=== PATIENT | female | born 1990 | race Caucasian/White ===

== ENCOUNTER 2018-01-21 09:52 | Inpatient (IN) | payer BC ==
[~2018-01-21] VITALS: Ht 160 cm; Wt 103.2 kg
[2018-01-21 00:40] VITALS: BP 109/73
[2018-01-21] MEDS ORDERED: OXYTOCIN 30U/ 0.9% NaCL 500ML 500 ML ONE (10:04)
[2018-01-21] MEDS ORDERED: NEWBORN KIT ONE (10:04)
[2018-01-21] MEDS ORDERED: LACTATED RINGERS 1,000 ML IVBOLUS ONE (10:30)
[2018-01-21] MEDS ORDERED: SODIUM CITRATE/CITRIC ACID 30 ML UDC PO ONE (10:30)
[2018-01-21] MEDS ORDERED: METOCLOPRAMIDE 5 MG/ML, 2ML IV ONE (10:30)
[2018-01-21] MEDS ORDERED: ONDANSETRON 2MG/ML, 2ML IVPush ONE (10:30)
[2018-01-21 10:47] VITALS: BP 133/82
[2018-01-21] MEDS ORDERED: SODIUM CITRATE/CITRIC ACID 30 ML UDC ONE (11:10)
[2018-01-21] MEDS ORDERED: METOCLOPRAMIDE 5 MG/ML, 2ML ONE (11:10)
[2018-01-21 11:13] LABS: BASOPHILS # (AUTO) 0.03 x10^3/uL (0-0.1); BASOPHILS % (AUTO) 0 % (0-1); EOSINOPHILS # (AUTO) 0.06 x10^3/uL (0-0.4); EOSINOPHILS % (AUTO) 1 % (1-7); LYMPHOCYTES # (AUTO) 1.67 x10^3/uL (1-3.4); LYMPHOCYTES % (AUTO) 18 % (22-44); MD NO; MEAN CORPUSCULAR HEMOGLOBIN 30.1 pg (27.0-34.8); MEAN CORPUSCULAR VOLUME 88.4 fL (80-100); MEAN PLATELET VOLUME 8.7 fL (7.4-10.4); MONOCYTES # (AUTO) 0.46 x10^3/uL (0.2-0.8); MONOCYTES % (AUTO) 5 % (2-9); NEUTROPHILS # (AUTO) 6.98 x10^3/uL (1.8-6.8); NEUTROPHILS % (AUTO) 76 % (42-75); PLATELET COUNT 217 x10^3/uL (130-400); RED BLOOD COUNT 4.13 x10^6/uL (3.82-5.3); RED CELL DISTRIBUTION WIDTH 13.4 % (9.6-15.2)
[2018-01-21] MEDS: LACTATED RINGERS 1,000 ML IV SCH ×4 (11:18→22:36)
[2018-01-21] MEDS ORDERED: ONDANSETRON 2MG/ML, 2ML ONE (11:52)
[2018-01-21] MEDS ORDERED: CEFAZOLIN 1,000 MG ONE (11:52)
[2018-01-21] MEDS ORDERED: EPHEDRINE 50 MG/ML, 1ML ONE (11:52)
[2018-01-21] MEDS ORDERED: PHENYLEPHRINE 10 MG/ML ONE (11:52)
[2018-01-21] MEDS ORDERED: OXYTOCIN 10 UNITS/ML, 1ML ONE (11:52)
[2018-01-21] MEDS ORDERED: morphine SULFATE/PF 0.5 MG/ML, 10ML ONE (11:53)
[2018-01-21] MEDS ORDERED: EPINEPHRINE 1 MG/ML, 1ML ONE (11:57)
[2018-01-21] MEDS ORDERED: OXYTOCIN 30U/ 0.9% NaCL 500ML 500 ML IV SCH (12:36)
[2018-01-21] MEDS ORDERED: LACTATED RINGERS 1,000 ML IV SCH ×2 (12:36→13:00)
[2018-01-21] MEDS ORDERED: ONDANSETRON 2MG/ML, 2ML IV PRN (13:00)
[2018-01-21] MEDS ORDERED: OXYcodone/APAP 5/325MG TABLET PO PRN (13:00)
[2018-01-21] MEDS ORDERED: MEASLES,MUMPS&RUBELLA VACC/PF 0.5 ML SQ-VACC PRN (13:00)
[2018-01-21] MEDS ORDERED: MISOPROSTOL 200 MCG TABLET PR PRN (13:00)
[2018-01-21] MEDS ORDERED: morphine SULFATE 10 MG/ML, 1ML IVPush PRN (13:00)
[2018-01-21] MEDS ORDERED: OXYcodone IR 5MG TABLET PO PRN (13:00)
[2018-01-21] MEDS ORDERED: SIMETHICONE 80 MG CHEW TAB PO PRN (13:00)
[2018-01-21] MEDS ORDERED: CALCIUM CARBONATE 500 MG TAB.CHEW PO PRN (13:00)
[2018-01-21] MEDS ORDERED: DIPH,PERTUSS(ACELL),TET VAC/PF NC IM-VACC PRN (13:00)
[2018-01-21] MEDS: OXYTOCIN 30U/ 0.9% NaCL 500ML 500 ML IV SCH ×2 (14:37→20:23)
[2018-01-21 14:50] VITALS: BP 125/82
[2018-01-21 17:00] VITALS: BP 143/86
[2018-01-21] MEDS: KETOROLAC 30 MG/1 ML IV SCH (18:05)
[2018-01-21 19:30] VITALS: BP 112/76
[2018-01-21 21:04] LABS: BASOPHILS # (AUTO) 0.04 x10^3/uL (0-0.1); BASOPHILS % (AUTO) 0 % (0-1); EOSINOPHILS # (AUTO) 0.04 x10^3/uL (0-0.4); EOSINOPHILS % (AUTO) 0 % (1-7); LYMPHOCYTES # (AUTO) 1.78 x10^3/uL (1-3.4); LYMPHOCYTES % (AUTO) 14 % (22-44); MD NO; MEAN CORPUSCULAR HEMOGLOBIN 29.5 pg (27.0-34.8); MEAN CORPUSCULAR HGB CONC 33.6 g/dL (32.4-35.8); MEAN CORPUSCULAR VOLUME 87.7 fL (80-100); MEAN PLATELET VOLUME 7.8 fL (7.4-10.4); MONOCYTES # (AUTO) 0.76 x10^3/uL (0.2-0.8); MONOCYTES % (AUTO) 6 % (2-9); NEUTROPHILS # (AUTO) 9.99 x10^3/uL (1.8-6.8); NEUTROPHILS % (AUTO) 79 % (42-75); PLATELET COUNT 206 x10^3/uL (130-400); RED BLOOD COUNT 3.56 x10^6/uL (3.82-5.3); RED CELL DISTRIBUTION WIDTH 13.5 % (9.6-15.2)
[2018-01-22 00:40] VITALS: BP 109/73
[2018-01-22] MEDS: KETOROLAC 30 MG/1 ML IV SCH ×4 (00:43→19:23)
[2018-01-22] MEDS: LACTATED RINGERS 1,000 ML IV SCH (02:23)
[2018-01-22 04:38] VITALS: BP 111/74
[2018-01-22] MEDS: OXYTOCIN 30U/ 0.9% NaCL 500ML 500 ML IV SCH (06:23)
[2018-01-22 07:36] VITALS: BP 102/65
[2018-01-22] MEDS: DOCUSATE 100 MG CAPSULE PO PRN ×2 (07:38→19:24)
[2018-01-22] MEDS: PRENATAL VIT/IRON/FA 1 EACH TABLET PO SCH (07:39)
[2018-01-22 12:11] VITALS: BP 107/74
[2018-01-22 19:40] VITALS: BP 112/71
[2018-01-23] MEDS: KETOROLAC 30 MG/1 ML IV SCH (02:05)
[2018-01-23 07:05] VITALS: BP 127/85
[2018-01-23] MEDS: DOCUSATE 100 MG CAPSULE PO PRN (07:30)
[2018-01-23] MEDS: IBUPROFEN 600 MG TABLET PO PRN ×2 (07:30→13:14)
[2018-01-23] MEDS: PRENATAL VIT/IRON/FA 1 EACH TABLET PO SCH (07:31)
[2018-01-23] MEDS ORDERED: IBUPROFEN 600 MG TABLET PO PRN (13:00)
== END 2018-01-23 18:13 | disposition home or self-care (01) | DRG 788 ==
LOC: LDIP 09:54 → 2NW 14:45
PROVIDERS: ADMIT Obstetrics & Gynecology Gynecology; ATTEND Obstetrics & Gynecology Gynecology
PROC: 10D00Z1 Extraction of Products of Conception, Low, Open Approach (ICD-10-PCS; principal; 2018-01-21)
DX: O34.211 Maternal care for low transverse scar from previous cesarean delivery (principal); Z37.0 Single live birth; Z3A.39 39 weeks gestation of pregnancy; Z82.3 Family history of stroke; Z83.3 Family history of diabetes mellitus
CPT/HCPCS: 36415; 82803; 85025; 86850; 86900; G0378; J0171; J0690; J1885; J2274; J2405; J2370; J2590; J2765; J7120

== ENCOUNTER 2019-11-06 09:22 | Outpatient (CLI) | payer BC ==
[~2019-11-06 09:22] MED LIST: IBUP-1223 PO; OXYC-302 PO
== END 2019-11-06 23:59 | disposition home or self-care (01) ==
LOC: CFH 09:22
PROVIDERS: ATTEND Nurse Practitioner Family
DX: N63.10 Unspecified lump in the right breast, unspecified quadrant (principal); R92.8 Other abnormal and inconclusive findings on diagnostic imaging of breast
CPT/HCPCS: 76642; 77066; G0279

== ENCOUNTER 2020-04-19 19:44 | Emergency (ER) | payer BC ==
[~2020-04-19] VITALS: Ht 165.1 cm; Wt 96.2 kg
[2020-04-19 20:37] LABS: HCG UR SG 1.007 (1.003-1.030)
--- NOTE | 2020-04-19 20:49 | NUR ---
Report from SAIDA Blanc. Assuming care.
[2020-04-19 20:51] LABS: MICROSCOPIC AUTO
[2020-04-19 21:04] LABS: ALBUMIN 3.8 g/dL (3.4-5.0); ANION GAP 8 mmol/L (5-15); CALCIUM 9.5 mg/dL (8.5-10.1); CHLORIDE 109 mmol/L (98-107)
[2020-04-19 21:11] LABS: BASOPHILS % (AUTO) 0 % (0-1); EOSINOPHILS % (AUTO) 1 % (1-7); LYMPHOCYTES % (AUTO) 6 % (22-44); MEAN CORPUSCULAR HEMOGLOBIN 29.9 pg (27.0-34.8); MEAN CORPUSCULAR HGB CONC 34.4 g/dL (32.4-35.8); MEAN PLATELET VOLUME 9.3 fL (7.4-10.4); MONOCYTES % (AUTO) 2 % (2-9); NEUTROPHILS % (AUTO) 92 % (42-75); PLATELET COUNT 163 x10^3/uL (130-400); RED BLOOD COUNT 4.67 x10^6/uL (3.82-5.3); RED CELL DISTRIBUTION WIDTH 12.5 % (9.6-15.2)
[2020-04-19 21:13] LABS: MD NO
[2020-04-19 21:14] LABS: ALANINE AMINOTRANSFERASE 43 U/L (12-78); ALKALINE PHOSPHATASE 84 U/L (45-117); BILIRUBIN,TOTAL 0.4 mg/dL (0.2-1.0); CREATININE 0.93 mg/dL (0.55-1.02); TOTAL PROTEIN 7.3 g/dL (6.4-8.2)
[2020-04-19 22:28] VITALS: BP 138/94
== END 2020-04-19 22:33 | disposition home or self-care (01) ==
LOC: ED 20:44
DX: R68.83 Chills (without fever) (principal); T50.5X5A Adverse effect of appetite depressants, initial encounter; Y92.89 Other specified places as the place of occurrence of the external cause
CPT/HCPCS: 36415; 80053; 81001; 81025; 85025; 87077; 87086; 87186; 99283

== ENCOUNTER 2020-04-23 10:36 | Emergency (ER) | payer BC ==
[~2020-04-23] VITALS: Ht 165.1 cm; Wt 84.2 kg
[2020-04-23] MEDS ORDERED: KETOROLAC 30 MG/1 ML ONE (11:15)
[2020-04-23] MEDS ORDERED: ONDANSETRON 2MG/ML, 2ML IVPush ONE (11:30)
[2020-04-23] MEDS ORDERED: SODIUM CHLORIDE 0.9% 1,000ML IVBOLUS ONE (11:30)
[2020-04-23] MEDS ORDERED: SODIUM CHLORIDE FLUSH 10ML SYR IVF ONE (11:30)
[2020-04-23] MEDS ORDERED: KETOROLAC 30 MG/1 ML IVPush ONE (11:30)
--- NOTE | 2020-04-23 11:33 | NUR ---
PT CAME IN CO OF BACK ACHES, BODY ACHES, NAUSEA. PT RECENTLY STARTED TAKING MACROBID FOR UTI DX ON SATURDAY. "JESSICA TAKEN 3 DOSES SO FAR". PT REPORTS HAVING A FEVER OF 102 AT 0100 THIS MORNING AND TOOK SOME ADVIL. PT RESTING IN [facility]. IV FLUIDS INFUSING. BLOOD CULTURES DRAWN. UA SENT. CONNECTED TO MONITORING EQUIPMENT. BEDSIDE.
--- NOTE | 2020-04-23 11:44 | NUR ---
PT REFUSING PAIN AND NAUSEA MEDICATION
[2020-04-23 12:04] LABS: ALBUMIN 3.1 g/dL (3.4-5.0); ANION GAP 6 mmol/L (5-15); CHLORIDE 108 mmol/L (98-107)
[2020-04-23 12:06] LABS: BASOPHILS % (AUTO) 0 % (0-1); EOSINOPHILS % (AUTO) 0 % (1-7); LYMPHOCYTES % (AUTO) 6 % (22-44); MEAN CORPUSCULAR HEMOGLOBIN 29.2 pg (27.0-34.8); MEAN CORPUSCULAR HGB CONC 33.6 g/dL (32.4-35.8); MEAN PLATELET VOLUME 8.9 fL (7.4-10.4); MONOCYTES % (AUTO) 14 % (2-9); NEUTROPHILS % (AUTO) 79 % (42-75); PLATELET COUNT 192 x10^3/uL (130-400); RED BLOOD COUNT 4.38 x10^6/uL (3.82-5.3); RED CELL DISTRIBUTION WIDTH 12.4 % (9.6-15.2)
[2020-04-23 12:07] LABS: ALANINE AMINOTRANSFERASE 37 U/L (12-78); ALKALINE PHOSPHATASE 79 U/L (45-117); BILIRUBIN,TOTAL 0.6 mg/dL (0.2-1.0); CREATININE 0.73 mg/dL (0.55-1.02); TOTAL PROTEIN 7.2 g/dL (6.4-8.2)
[2020-04-23 12:08] LABS: MICROSCOPIC AUTO
[2020-04-23 12:19] LABS: MD NO
[2020-04-23] MEDS ORDERED: CEFTRIAXONE PMX 1GM/50ML 50 ML ONE (13:25)
[2020-04-23] MEDS ORDERED: SODIUM CHLORIDE 0.9% 1,000 ML IV ONE (13:30)
[2020-04-23] MEDS ORDERED: CEFTRIAXONE PMX 1GM/50ML 50 ML IV ONE (13:30)
--- NOTE | 2020-04-23 13:32 | NUR ---
Billy hickman in ED - 04/23/20 at 1349 by ABHI PT REMOVED ALL MONITORING EQUIPMENT. REMOVED IV. STATES SHE WANTS TO GO HOME. PT EDUCATED THAT WE ARE GOING TO HAVE THE [facility] TALK TO HER AND HELP HER. PT AGREED TO STAY
[2020-04-23] MEDS ORDERED: OMNIPAQUE 350 MG/ML, 100ML BOTTLE ONE (13:42)
[2020-04-23 13:47] LABS: RAPID INFLUENZA A Negative (Negative); RAPID INFLUENZA B Negative (Negative)
--- NOTE | 2020-04-23 13:49 | NUR ---
Report from SAIDA Miranda. Assumed care.
[2020-04-23 14:34] VITALS: BP 125/76
--- NOTE | 2020-04-23 14:34 | NUR ---
IV removed. Pt agrees with and understands discharge plan and instructions.
--- NOTE | 2020-04-23 14:53 | NUR ---
Pt reported to nurse that her primary doctor is Geovanna Gomes with [facility] [[email or web address] She has an appointment scheduled with her May 04.
== END 2020-04-23 14:55 | disposition home or self-care (01) ==
LOC: ED 11:39
DX: N30.00 Acute cystitis without hematuria (principal); Z20.822 Contact with and (suspected) exposure to COVID-19; A41.9 Sepsis, unspecified organism; R50.9 Fever, unspecified; B96.20 Unspecified Escherichia coli [E. coli] as the cause of diseases classified elsewhere
CPT/HCPCS: 36415; 74177; 80053; 81001; 85025; 87040; 87086; 87400; 87635; 96361; 96365; 99285; J0696; J7030; Q9967